=== PATIENT | female | born 1990 | race Caucasian/White ===

== ENCOUNTER 2021-05-13 11:15 | Outpatient (CLI) | payer BC ==
[~2021-05-13] VITALS: Ht 175.3 cm; Wt 81.8 kg
[2021-05-13 11:25] VITALS: BP 120/76
== END 2021-05-13 11:55 | disposition home or self-care (01) ==
LOC: LDOP 11:15
PROVIDERS: ATTEND Student in an Organized Health Care Education/Training Program
DX: O36.8130 Decreased fetal movements, third trimester, not applicable or unspecified (principal); Z3A.38 38 weeks gestation of pregnancy
CPT/HCPCS: 59025

== ENCOUNTER 2021-05-23 08:15 | Inpatient (IN) | payer BC ==
[~2021-05-23] VITALS: Ht 175.3 cm; Wt 84.0 kg
[2021-05-23] MEDS ORDERED: CHOL10003 PO (12:41)
[2021-05-23] MEDS ORDERED: ASCO500C10 PO (12:41)
[2021-05-23] MEDS ORDERED: PREN1TAB79 PO (12:41)
[2021-05-23] MEDS ORDERED: FENTANYL PF 100 MCG/2ML IV PRN (13:00)
[2021-05-23] MEDS ORDERED: TERBUTALINE 1 MG/ML, 1ML SQ PRN (13:00)
[2021-05-23] MEDS ORDERED: TERBUTALINE 1 MG/ML, 1ML IVPush PRN (13:00)
[2021-05-23] MEDS ORDERED: CALCIUM CARBONATE 500 MG TAB.CHEW PO PRN (13:00)
[2021-05-23] MEDS ORDERED: ONDANSETRON 2MG/ML, 2ML IVPush PRN (13:00)
[2021-05-23] MEDS ORDERED: FENTANYL PF 100 MCG/2ML IVPush PRN (13:00)
[2021-05-23] MEDS ORDERED: OXYTOCIN 30U/ 0.9% NaCL 500ML 500 ML IV ONE (13:00)
[2021-05-23] MEDS ORDERED: MISOPROSTOL 25 MCG TABLET VG PRN (13:00)
[2021-05-23] MEDS ORDERED: ALUMINUM/MAG/SIMETHICONE 30 ML UDC PO PRN (13:00)
[2021-05-23] MEDS ORDERED: MISOPROSTOL 25 MCG TABLET ONE (13:08)
[2021-05-23 13:15] VITALS: BP 124/86
[2021-05-23 13:25] LABS: BASOPHILS % (AUTO) 1 % (0-1); EOSINOPHILS % (AUTO) 0 % (1-7); LYMPHOCYTES % (AUTO) 27 % (22-44); MEAN CORPUSCULAR HEMOGLOBIN 33.3 pg (27.0-34.8); MEAN CORPUSCULAR HGB CONC 34.2 g/dL (32.4-35.8); MEAN PLATELET VOLUME 9.8 fL (7.4-10.4); MONOCYTES % (AUTO) 9 % (2-9); NEUTROPHILS % (AUTO) 63 % (42-75); PLATELET COUNT 184 x10^3/uL (130-400); RED CELL DISTRIBUTION WIDTH 12.7 % (9.6-15.2)
[2021-05-23] MEDS ORDERED: BUPIVACAINE 0.25% ONE ×2 (22:12→22:43)
[2021-05-23] MEDS ORDERED: FENTANYL/BUPIV./NS/PF 250 ML EPIDCONT ONE (22:13)
[2021-05-23] MEDS ORDERED: LIDOCAINE/MPF 2%-EPI 1:200K, 20 ML ONE (22:53)
[2021-05-23] MEDS ORDERED: LACTATED RINGERS 1,000 ML IV SCH (23:00)
[2021-05-23] MEDS ORDERED: LACTATED RINGERS 1,000 ML IVBOLUS PRN (23:00)
[2021-05-23] MEDS ORDERED: FENTANYL/BUPIV./NS/PF 250 ML EPIDCONT SCH (23:00)
[2021-05-23] MEDS ORDERED: EPHEDRINE 50 MG/ML, 1ML IVPush PRN (23:00)
[2021-05-24] MEDS ORDERED: OXYTOCIN 30U/ 0.9% NaCL 500ML 500 ML ONE (02:14)
[2021-05-24] MEDS ORDERED: NEWBORN KIT ONE (02:55)
[2021-05-24] MEDS ORDERED: METOCLOPRAMIDE 5 MG/ML, 2ML ONE (06:57)
[2021-05-24] MEDS ORDERED: SODIUM CITRATE/CITRIC ACID 15 ML UDC ONE (06:57)
[2021-05-24] MEDS ORDERED: LIDOCAINE/MPF 2%-EPI 1:200K, 20 ML ONE (07:14)
[2021-05-24] MEDS ORDERED: ONDANSETRON 2MG/ML, 2ML ONE (07:22)
[2021-05-24] MEDS ORDERED: KETOROLAC 30 MG/1 ML ONE (07:22)
[2021-05-24] MEDS ORDERED: CEFAZOLIN 1,000 MG ONE (07:22)
[2021-05-24] MEDS ORDERED: PHENYLEPHRINE 10 MG/ML ONE (07:22)
[2021-05-24] MEDS ORDERED: DEXAMETHASONE 4 MG/ML, 1ML ONE (07:22)
[2021-05-24] MEDS ORDERED: SODIUM CHLORIDE 0.9% PF 10ML ONE (07:22)
[2021-05-24] MEDS ORDERED: OXYTOCIN 10 UNITS/ML, 1ML ONE (07:22)
[2021-05-24] MEDS ORDERED: morphine SULFATE/PF 0.5 MG/ML, 10ML ONE (07:23)
[2021-05-24] MEDS ORDERED: PHYTONADIONE 1 MG/0.5 ML SYRINGE IM ONE (07:30)
[2021-05-24] MEDS ORDERED: FENTANYL PF 100 MCG/2ML ONE (07:38)
[2021-05-24] MEDS ORDERED: AZITHROMYCIN 500 MG in SODIUM CHLORIDE 0.9% 250 ML IV ONE (09:00)
[2021-05-24] MEDS ORDERED: METOCLOPRAMIDE 5 MG/ML, 2ML IVPush ONE (09:00)
[2021-05-24] MEDS ORDERED: SODIUM CITRATE/CITRIC ACID 30 ML UDC PO ONE (09:00)
[2021-05-24] MEDS ORDERED: OXYcodone 5 MG/5 ML ORAL.SOL UDC ONE (09:47)
[2021-05-24 10:30] VITALS: BP 136/85
[2021-05-24] MEDS ORDERED: KETOROLAC 30 MG/1 ML IV SCH (10:30)
[2021-05-24] MEDS: OXYTOCIN 30U/ 0.9% NaCL 500ML 500 ML IV SCH ×2 (10:30→20:53)
[2021-05-24] MEDS: LACTATED RINGERS 1,000 ML IV SCH ×4 (10:30→20:53)
[2021-05-24] MEDS: IBUPROFEN 600 MG TABLET PO SCH ×3 (10:30→23:29)
[2021-05-24] MEDS ORDERED: ONDANSETRON 2MG/ML, 2ML IV PRN ×2 (10:30→11:00)
[2021-05-24] MEDS ORDERED: SIMETHICONE 80 MG CHEW TAB PO PRN (10:30)
[2021-05-24] MEDS ORDERED: MISOPROSTOL 200 MCG TABLET PR PRN (10:30)
[2021-05-24] MEDS ORDERED: OXYcodone IR 5MG TABLET PO PRN (10:30)
[2021-05-24] MEDS ORDERED: OXYcodone 5 MG/5 ML ORAL.SOL UDC PO PRN (11:00)
[2021-05-24] MEDS ORDERED: MEPERIDINE/PF 25MG/0.5ML IV PRN (11:00)
[2021-05-24] MEDS ORDERED: FENTANYL PF 100 MCG/2ML IVPush PRN (11:00)
[2021-05-24] MEDS ORDERED: EPHEDRINE 50 MG/ML, 1ML IVPush PRN ×3 (11:00→11:30)
[2021-05-24] MEDS ORDERED: METOCLOPRAMIDE 5 MG/ML, 2ML IVPush PRN (11:00)
[2021-05-24] MEDS ORDERED: LABETALOL 5MG/ML 40ML VIAL IV PRN (11:00)
[2021-05-24] MEDS ORDERED: MIDAZOLAM 1 MG/ML, 5ML IV PRN (11:00)
[2021-05-24 11:12] LABS: ALANINE AMINOTRANSFERASE 17 U/L (12-78); ALBUMIN 2.1 g/dL (3.4-5.0); ANION GAP 9 mmol/L (5-15); CALCIUM 8.4 mg/dL (8.5-10.1); CHLORIDE 108 mmol/L (98-107); CREATININE 0.63 mg/dL (0.55-1.02)
[2021-05-24 11:14] LABS: ALKALINE PHOSPHATASE 241 U/L (45-117); BILIRUBIN,TOTAL 0.6 mg/dL (0.2-1.0); TOTAL PROTEIN 5.4 g/dL (6.4-8.2)
[2021-05-24] MEDS ORDERED: OXYcodone/APAP 5/325MG TABLET PO PRN ×2 (11:30)
[2021-05-24] MEDS ORDERED: NO SEDATIVES, TRANQUILIZERS OR ANTIEMETICS XX SCH ×2 (11:30)
[2021-05-24] MEDS ORDERED: NALOXONE 0.4 MG/ML, 1ML IV PRN ×2 (11:30)
[2021-05-24] MEDS ORDERED: morphine SULFATE 10 MG/ML, 1ML IVPush PRN ×2 (11:30)
[2021-05-24] MEDS ORDERED: ONDANSETRON 2MG/ML, 2ML IVPush PRN ×2 (11:30)
[2021-05-24] MEDS ORDERED: DIPHENHYDRAMINE 50 MG/ML, 1ML IV PRN ×2 (11:30)
[2021-05-24 13:15] VITALS: BP 106/64
[2021-05-24] MEDS: KETOROLAC 30 MG/1 ML IVPush SCH ×2 (14:23→21:00)
[2021-05-24] MEDS: ACETAMINOPHEN 325 MG TABLET PO SCH ×2 (14:23→21:00)
[2021-05-24 15:34] LABS: BASOPHILS % (AUTO) 0 % (0-1); EOSINOPHILS % (AUTO) 0 % (1-7); LYMPHOCYTES % (AUTO) 5 % (22-44); MEAN CORPUSCULAR HEMOGLOBIN 33.4 pg (27.0-34.8); MEAN CORPUSCULAR HGB CONC 34.3 g/dL (32.4-35.8); MEAN PLATELET VOLUME 9.5 fL (7.4-10.4); MONOCYTES % (AUTO) 5 % (2-9); NEUTROPHILS % (AUTO) 90 % (42-75); PLATELET COUNT 174 x10^3/uL (130-400); RED CELL DISTRIBUTION WIDTH 12.6 % (9.6-15.2)
[2021-05-24 21:00] VITALS: BP 125/80
[2021-05-24] MEDS: DOCUSATE 100 MG CAPSULE PO PRN (21:00)
[2021-05-25 00:30] VITALS: BP 122/77
[2021-05-25] MEDS: LACTATED RINGERS 1,000 ML IV SCH ×5 (02:57→19:15)
[2021-05-25] MEDS: ACETAMINOPHEN 325 MG TABLET PO SCH ×4 (02:59→20:08)
[2021-05-25] MEDS: KETOROLAC 30 MG/1 ML IVPush SCH ×2 (02:59→08:00)
[2021-05-25 03:55] VITALS: BP 132/86
[2021-05-25] MEDS: IBUPROFEN 600 MG TABLET PO SCH ×4 (04:12→20:08)
[2021-05-25] MEDS: OXYTOCIN 30U/ 0.9% NaCL 500ML 500 ML IV SCH ×2 (06:30→16:30)
[2021-05-25 08:30] VITALS: BP 122/76
[2021-05-25] MEDS: OXYcodone IR 5MG TABLET PO PRN ×2 (08:37→16:46)
[2021-05-25] MEDS: DOCUSATE 100 MG CAPSULE PO PRN ×2 (08:37→20:07)
[2021-05-25] MEDS: PRENATAL VIT/IRON/FA 1 EACH TABLET PO SCH (09:00)
[2021-05-25] MEDS ORDERED: RHOGAM FROM BLOOD BANK 1 NOTE EA IM/IV ONE (10:30)
[2021-05-25 19:59] VITALS: BP 135/82
[2021-05-26] MEDS: LACTATED RINGERS 1,000 ML IV SCH ×5 (02:30→17:29)
[2021-05-26] MEDS: OXYTOCIN 30U/ 0.9% NaCL 500ML 500 ML IV SCH ×2 (02:30→12:30)
[2021-05-26] MEDS: ACETAMINOPHEN 325 MG TABLET PO SCH ×4 (02:40→21:29)
[2021-05-26] MEDS: IBUPROFEN 600 MG TABLET PO SCH ×4 (02:40→21:29)
[2021-05-26] MEDS: OXYcodone IR 5MG TABLET PO PRN ×5 (02:41→22:42)
[2021-05-26] MEDS: DOCUSATE 100 MG CAPSULE PO PRN ×2 (07:59→22:42)
[2021-05-26] MEDS: PRENATAL VIT/IRON/FA 1 EACH TABLET PO SCH (08:01)
[2021-05-26 09:38] VITALS: BP 128/83
[2021-05-26] MEDS ORDERED: OXYC5TAB98 PO (09:47)
[2021-05-26] MEDS ORDERED: IBUP-1222 PO (09:47)
[2021-05-26] MEDS ORDERED: DOCU-131 PO (09:47)
[2021-05-26] MEDS ORDERED: ACET650S21 PO (09:48)
[2021-05-26 19:29] VITALS: BP 136/78
[2021-05-27 03:00] VITALS: BP 138/84
[2021-05-27] MEDS: IBUPROFEN 600 MG TABLET PO SCH ×2 (03:35→10:23)
[2021-05-27] MEDS: ACETAMINOPHEN 325 MG TABLET PO SCH ×2 (03:36→10:23)
[2021-05-27] MEDS: OXYcodone IR 5MG TABLET PO PRN (03:40)
[2021-05-27] MEDS: PRENATAL VIT/IRON/FA 1 EACH TABLET PO SCH (09:00)
[2021-05-27 09:15] VITALS: BP 149/90
[2021-05-27] MEDS: DOCUSATE 100 MG CAPSULE PO PRN (10:23)
[2021-05-27 12:05] VITALS: BP 130/83
== END 2021-05-27 12:45 | disposition home or self-care (01) | DRG 787 ==
LOC: LDIP 12:26 → 2NW 05-24 10:07
PROVIDERS: ADMIT Student in an Organized Health Care Education/Training Program; ATTEND Student in an Organized Health Care Education/Training Program
PROC: 10D00Z1 Extraction of Products of Conception, Low, Open Approach (ICD-10-PCS; principal; 2021-05-24)
PROC: 3E033VJ Introduction of Other Hormone into Peripheral Vein, Percutaneous Approach (ICD-10-PCS; 2021-05-24)
DX: O48.0 Post-term pregnancy (principal); O99.354 Diseases of the nervous system complicating childbirth; O99.62 Diseases of the digestive system complicating childbirth; O32.4XX0 Maternal care for high head at term, not applicable or unspecified; O26.893 Other specified pregnancy related conditions, third trimester; K90.0 Celiac disease; G43.909 Migraine, unspecified, not intractable, without status migrainosus; Z37.0 Single live birth; Z83.3 Family history of diabetes mellitus; Z80.1 Family history of malignant neoplasm of trachea, bronchus and lung; Z3A.40 40 weeks gestation of pregnancy; Z67.91 Unspecified blood type, Rh negative; O61.0 Failed medical induction of labor; Z20.822 Contact with and (suspected) exposure to COVID-19
CPT/HCPCS: 36415; 80053; 82570; 84156; 85025; 85461; 86592; 86850; 86900; 87635; G0378; J0456; J0690; J1100; J1885; J2274; J2405; J2790; J3010; J2370; J2590; J2765; J7050; J7120